=== PATIENT | male | born 1985 | race Caucasian/White ===

== ENCOUNTER 2019-03-13 13:14 | Emergency (ER) | payer MEDICAID ==
[~2019-03-13] VITALS: Ht 185.4 cm; Wt 78.0 kg
[2019-03-13 13:19] VITALS: BP 117/69
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
--- NOTE | 2019-03-13 13:38 | NUR ---
Dr. Resendez evaluating patient at bedside.
[2019-03-13] MEDS ORDERED: ONDANSETRON 4 MG ODT PO ONE (13:45)
[2019-03-13] MEDS ORDERED: HYDROcodone/APAP 5/325 MG 1 TAB TAB PO ONE (13:45)
--- NOTE | 2019-03-13 15:03 | NUR ---
Patient states that pain is 6/10. Patient appears to be resting comfortably. Waiting for pending results. All needs addressed.
[2019-03-13 15:40] LABS: BILIRUBIN,URINE 1+ (NEGATIVE); BLOOD, URINE 2+ (NEGATIVE); LEUKOCYTE ESTERASE ,URINE TRACE (NEGATIVE); NITRITE, URINE NEGATIVE (NEGATIVE); PH,URINE 5.5 (5.0-9.0); UGLUCOSE NEGATIVE (NEGATIVE)
[2019-03-13 15:42] LABS: APPEARANCE,URINE HAZY (CLEAR); COLOR,URINE AMBER (YELLOW)
[2019-03-13 15:55] LABS: WBC,URINE 20-60 /HPF (0-5)
[2019-03-13 16:11] VITALS: BP 111/58
--- NOTE | 2019-03-13 16:16 | NUR ---
Patient discharged with v/s stable. Written and verbal after care instructions given and explained. Patient alert, oriented and verbalized understanding of instructions. Ambulatory with steady gait. All questions addressed prior to discharge. ID band removed. Patient advised to follow up with PMD. PATIENT INSTRUCTED TO USE INCENTICE SPIROMETER. Rx of PERCOCET 5MG-325MG; ZOFRAN 4MG, COLACE 100MG, AND IBUPROFEN 600MG given. Patient educated on indication of medication including possible reaction and side effects. Opportunity to ask questions provided and answered.
--- NOTE | 2019-03-13 16:20 | NUR ---
Note undindu in EDM - 03/13/19 at 1622 by ELIO Patient discharged with v/s stable. Written and verbal after care instructions given and explained. Patient alert, oriented and verbalized understanding of instructions. Ambulatory with steady gait. All questions addressed prior to discharge. ID band removed. Patient advised to follow up with PMD. Rx of PERCOCE 5MG-325MG, ZOFRAN 4MG, COLACE 100MG, IBUPROFEN 600MG given. INSTRUCTED PATIENT ON INCENTIVE SPIROMETER. Patient educated on indication of medication including possible reaction and side effects. Opportunity to ask questions provided and answered.
== END 2019-03-13 16:11 | disposition home or self-care (01) ==
LOC: MED 13:14
DX: M54.5 Low back pain (principal)
CPT/HCPCS: 71250; 74176; 81001; 87086; 99284; Q0162

== ENCOUNTER 2019-04-03 17:18 | Emergency (ER) | payer MEDICAID ==
[~2019-04-03] VITALS: Ht 184.2 cm; Wt 78.1 kg
[2019-04-03 17:22] VITALS: BP 105/59
--- NOTE | 2019-04-03 17:31 | NUR ---
PT AMBULATED TO BED 2 WITH STEADY GAIT.
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
[2019-04-03] MEDS: KETOROLAC 60 MG/2 ML VIAL IM ONE (18:15)
[2019-04-03 18:37] LABS: APPEARANCE,URINE CLEAR (CLEAR); BILIRUBIN,URINE NEGATIVE (NEGATIVE); BLOOD, URINE 1+ (NEGATIVE); COLOR,URINE YELLOW (YELLOW); LEUKOCYTE ESTERASE ,URINE NEGATIVE (NEGATIVE); NITRITE, URINE NEGATIVE (NEGATIVE); UGLUCOSE NEGATIVE (NEGATIVE)
[2019-04-03 19:02] LABS: RBC,URINE 0-5 /HPF (0-5); WBC,URINE 16-25 (MOD) /HPF (0-5)
[2019-04-03 19:03] LABS: URINE AMORPHOUS URATE 1+ /HPF (None Seen)
--- NOTE | 2019-04-03 19:05 | NUR ---
RECEIVED REPORT FROM LUZMARIA OLGUIN. TRANSFER OF CARE AT THIS TIME.
[2019-04-03] MEDS: cefTRIAXone 1,000 MG in LIDOCAINE MPF 1% - 5 mL VIAL 2.1 ML IM ONE (19:20)
[2019-04-03 19:34] VITALS: BP 112/55
--- NOTE | 2019-04-03 19:34 | NUR ---
Patient discharged with v/s stable. Written and verbal after care instructions given and explained. Patient alert, oriented and verbalized understanding of instructions. Ambulatory with steady gait. All questions addressed prior to discharge. ID band removed. Patient advised to follow up with PMD. Rx of Flexeril, Keflex, Ibuprofen given. Patient educated on indication of medication including possible reaction and side effects. Opportunity to ask questions provided and answered.
[2019-04-06 15:25] LABS: CHLAMYDIA TRACHOMATIS AMP DNA POSITIVE (NEGATIVE)
== END 2019-04-03 19:34 | disposition home or self-care (01) ==
LOC: MED 17:18
DX: M54.5 Low back pain (principal); N39.0 Urinary tract infection, site not specified; Z11.3 Encounter for screening for infections with a predominantly sexual mode of transmission
CPT/HCPCS: 36415; 81001; 87086; 87491; 96372; 99283; J0696; J1885; J2001

== ENCOUNTER 2021-01-11 14:40 | Emergency (ER) | payer SELFPAY ==
[~2021-01-11] VITALS: Ht 177.8 cm; Wt 74.8 kg
--- NOTE | 2021-01-11 14:40 | NUR ---
Patient transferred to bed 9 via wheelchair by tech. RN evaluating the patient at bedside.
--- NOTE | 2021-01-11 14:42 | NUR ---
Dr. Garcia is evaluating the patient at bedside.
[2021-01-11] MEDS ORDERED: EPINEPHrine PFS 0.1 MG/ML SYR IVP ONE (14:45)
[2021-01-11 14:47] VITALS: BP 134/82
[2021-01-11] MEDS ORDERED: EPINEPHrine 1 MG/ML AMP ONE (14:48)
[2021-01-11] MEDS ORDERED: EPINEPHrine 1 MG/ML AMP IM ONE (14:50)
--- NOTE | 2021-01-11 14:50 | NUR ---
3MG OF IV EPINEPHRINE RETURNED TO [facility], PULLED WRONG MEDICATION
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
--- NOTE | 2021-01-11 15:07 | NUR ---
DR UNDERWOOD AT BEDSIDE EVALUATING PT
--- NOTE | 2021-01-11 15:18 | NUR ---
RAD AT BEDSIDE
[2021-01-11] MEDS ORDERED: FAMOTIDINE 20 MG TAB PO ONE (15:20)
[2021-01-11] MEDS ORDERED: methylPREDNISolone SS 125 MG in WATER STERILE 2 ML IV ONE (15:20)
[2021-01-11] MEDS ORDERED: WATER STERILE 10 ML MC ONE (15:22)
[2021-01-11] MEDS ORDERED: methylPREDNISolone SS 125 MG/2 ML VIAL ONE (15:23)
--- NOTE | 2021-01-11 15:30 | NUR ---
PT MORE ALERT AND AWAKE, BREATHING EVEN AND UNLABORED. PT AROUSABLE AND STATES HE IS FEELING MUCH BETTER THAN UPON ARRIVAL. BP 111/67, HR 76
[2021-01-11 15:37] LABS: BASOPHILS # (AUTO) 0.1 K/uL (0.00-0.22); BASOPHILS % (AUTO) 0.9 % (0.0-2.0); EOSINOPHILS # (AUTO) 0.1 K/uL (0-0.4); HEMATOCRIT 46.2 % (36-52); HEMOGLOBIN 15.4 g/dL (12.0-18.0); LYMPHOCYTES # (AUTO) 3.3 K/uL (2.0-11.5); MEAN CORPUSCULAR HEMOGLOBIN 32 pg (27-31); MEAN CORPUSCULAR HGB CONC 33 g/dL (33-37); MEAN CORPUSCULAR VOLUME 96.8 fL (80-94); MONOCYTES # (AUTO) 0.5 K/uL (0.8-1.0); MONOCYTES % (AUTO) 6.1 % (1.7-9.3); NEUTROPHILS # (AUTO) 4.3 K/uL (1.8-7.7); PLATELET COUNT (AUTO) 175 K/uL (140-450); RED BLOOD CELL COUNT(AUTO) 4.78 MIL/uL (4.20-6.10); RED CELL DISTRIBUTION WIDTH 13.1 % (11.6-13.7); WHITE BLOOD COUNT (AUTO) 8.3 K/uL (4.8-10.8)
[2021-01-11] MEDS ORDERED: NACL 0.9% 1,000 ML IV ONE (16:00)
[2021-01-11 16:05] LABS: ALBUMIN 3.6 g/dL (3.4-5.0); ANION GAP 19.4 (8-16); CARBON DIOXIDE 21.1 mmol/L (21-32); CREATININE 1.5 mg/dL (0.6-1.3); POTASSIUM 3.5 mmol/L (3.5-5.1); TOTAL BILIRUBIN 0.6 mg/dL (0.0-1.0)
--- NOTE | 2021-01-11 16:43 | NUR ---
Pankaj tripathi in ED - 01/11/21 at 1644 by [email or web address] PT RESTING IN BED WITH EVEN AND UNLABORED RESPIRATIONS. PT DENIES PAIN. 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
--- NOTE | 2021-01-11 16:43 | NUR ---
PT RESTING IN BED WITH EVEN AND UNLABORED RESPIRATIONS. PT DENIES PAIN. 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 WILL CONTINUE TO MONITOR.
--- NOTE | 2021-01-11 16:50 | NUR ---
PER DR UNDERWOOD, URINE SAMPLE NO LONGER NEEDED.
[2021-01-11] MEDS ORDERED: FAMO-90 PO (18:40)
[2021-01-11] MEDS ORDERED: CETI10SG1 PO (18:41)
[2021-01-11] MEDS ORDERED: PRED20TA5 PO (18:42)
[2021-01-11] MEDS ORDERED: EPIN1KIT31 IM (18:43)
[2021-01-11 19:18] VITALS: BP 119/78
--- NOTE | 2021-01-11 19:19 | NUR ---
Patient discharged with v/s stable. Written and verbal after care instructions ABOUT ANAPHYLACTIC RX given and explained. Patient alert, oriented and verbalized understanding of instructions. Ambulatory with steady gait. All questions addressed prior to discharge. ID band removed. Patient advised to follow up with PMD. Rx of CITIRIZINE HCL, EPINEPHRINE, FAMOTIDINE, AND PREDNISONE given. Patient educated on indication of medication including possible reaction and side effects. Opportunity to ask questions provided and answered.
== END 2021-01-11 19:19 | disposition home or self-care (01) ==
LOC: MED 14:40
DX: T78.40XA Allergy, unspecified, initial encounter (principal); R41.82 Altered mental status, unspecified; R11.10 Vomiting, unspecified; Z79.899 Other long term (current) drug therapy; X58.XXXA Exposure to other specified factors, initial encounter
CPT/HCPCS: 36415; 71045; 80053; 83605; 85025; 87040; 96361; 96372; 96374; 99284; J0171; J2930; J7030; Q0163

== ENCOUNTER 2021-12-17 16:23 | Emergency (ER) | payer MEDICAID ==
[~2021-12-17] VITALS: Ht 170.2 cm; Wt 71.2 kg
[~2021-12-17 16:23] MED LIST: CETI10SG1 PO; EPIN1KIT31 IM; FAMO-90 PO; PRED20TA5 PO
[2021-12-17 16:36] VITALS: BP 124/90
[2021-12-17] MEDS: NACL 0.9% 1,000 ML IV ONE (17:10)
[2021-12-17] MEDS: KETOROLAC 30 MG/ML VIAL IVP ONE (17:14)
[2021-12-17] MEDS ORDERED: PRED20TA5 PO (17:21)
[2021-12-17] MEDS ORDERED: IBUP-2213 PO (17:21)
[2021-12-17 17:45] VITALS: BP 138/85
== END 2021-12-17 17:45 | disposition home or self-care (01) ==
LOC: MED 16:23
DX: R07.89 Other chest pain (principal); R21 Rash and other nonspecific skin eruption; F17.200 Nicotine dependence, unspecified, uncomplicated; Z79.899 Other long term (current) drug therapy
CPT/HCPCS: 81002; 93005; 96361; 96374; 99283; J1885; J7030